=== PATIENT | female | born 1995 | race Caucasian/White ===

== ENCOUNTER 2016-07-12 10:12 | Emergency (ER) | payer OTHER ==
[2016-07-12 11:10] VITALS: BP 135/85
--- NOTE | 2016-07-12 12:30 | UC ---
Complaint Female HPI - HPI Summary HPI Summary: Dysuria, frequency, hematuria starting last night. feels like other UTIs she's had. Last UTI was 2.5 months ago. Has had increased freq of UTIs since she started the nuvaring. - History Of Current Complaint Chief Complaint: UCGU Stated Complaint: URINARY Time Seen by Provider: 07/12/16 12:18 Hx Obtained From: Patient Hx Last Menstrual Period: 5 weeks ago ?: No Onset/Duration: Gradual Onset, Lasting Hours Timing: Constant Severity Initially: Mild Severity Currently: Moderate Character: Burning Aggravating Factor(s): Urination - Allergies/Home Medications Allergies/Adverse Reactions: Allergies Allergy/AdvReac Type Severity Reaction Status Date / Time Codeine Allergy Vomiting Verified 07/12/16 11:10 Home Medications: Home Medications Nuva Ring 1 dose VAGINAL WEEKLY 07/12/16 [History Confirmed 07/12/16] PMH/Surg Hx/FS Hx/Imm Hx Previously Healthy: Yes Respiratory History Of: Denies: Asthma - Surgical History Surgical History: Yes Surgery Procedure, Year, and Place: Right knee - Family History Known Family History: Positive: Hypertension - Social History Lives: Alone Alcohol Use: None Substance Use Type: None Smoking Status (MU): Never Smoked Tobacco Review of Systems Constitutional: Negative Skin: Negative Eyes: Negative ENT: Negative Respiratory: Negative Cardiovascular: Negative Gastrointestinal: Negative Genitourinary: Dysuria, Hematuria, Frequency, Urgency Motor: Negative Neurovascular: Negative Musculoskeletal: Negative Neurological: Negative Psychological: Negative All Other Systems Reviewed And Are Negative: Yes Physical Exam Triage Information Reviewed: Yes Appearance: Well-Appearing, No Pain Distress, Well-Nourished Vital Signs: Initial Vital Signs Temp 97.1 F 07/12/16 11:08 Pulse 84 07/12/16 11:08 Resp 14 07/12/16 11:08 BP 135/85 07/12/16 11:08 Pulse Ox 99 07/12/16 11:08 Vital Signs Reviewed: Yes Eye Exam: Normal Eyes: Positive: Conjunctiva Clear ENT Exam: Normal ENT: Positive: Normal ENT inspection, Hearing grossly normal, Pharynx normal, TMs normal. Negative: Nasal congestion Dental Exam: Normal Neck exam: Normal Neck: Positive: Supple, Nontender, No Lymphadenopathy Cardiovascular Exam: Normal Cardiovascular: Positive: RRR, No Murmur Abdominal Exam: Normal Abdomen Description: Positive: Nontender, Soft. Negative: CVA Tenderness (R), CVA Tenderness (L) Musculoskeletal Exam: Normal Neurological Exam: Normal Psychological Exam: Normal Skin Exam: Normal Complaint Female Dx - Differential Dx/Diagnosis Provider Diagnoses: UTI Discharge - Discharge Plan Condition: Stable Disposition: HOME Prescriptions: Nitrofurantoin Monohyd Macro [Macrobid] 100 mg PO BID #10 cap Patient Education Materials: Urinary Tract Infection in Women (ED) Referrals: Roxie Munoz [Primary Care Provider] - If Needed
== END 2016-07-12 12:31 | disposition home or self-care (01) ==
LOC: UCCORT 10:12
DX: N39.0 Urinary tract infection, site not specified (principal); R09.81 Nasal congestion; Z87.440 Personal history of urinary (tract) infections
CPT/HCPCS: 81025; 87077; 87086; 87186; 99212; G0463

== ENCOUNTER 2019-04-02 17:50 | Emergency (ER) | payer BC ==
[2019-04-02 18:12] VITALS: BP 145/84
--- NOTE | 2019-04-02 18:32 | UC ---
Respiratory Complaint HPI - HPI Summary HPI Summary: Ms. Ohara started with sore throat and congestion about a week ago. It has progressed and she no longer has a sore throat but she is coughing a lot. The cough is mildly productive. She's not aware of any fevers. - History of Current Complaint Chief Complaint: UCRespiratory Stated Complaint: URI Time Seen by Provider: 04/02/19 18:17 Hx Obtained From: Patient Hx Last Menstrual Period: [id number] Onset/Duration: Gradual Onset Severity Initially: Moderate Severity Currently: Moderate Pain Intensity: 5 Character: Cough: Nonproductive Associated Signs And Symptoms: Positive: Nasal Congestion - Allergies/Home Medications Allergies/Adverse Reactions: Allergies Allergy/AdvReac Type Severity Reaction Status Date / Time codeine Allergy Vomiting Verified 04/02/19 18:14 Home Medications: Home Medications Acetaminophen TAB* [Tylenol TAB*] 975 mg PO Q6H PRN 04/02/19 [History Confirmed 04/02/19] Cetirizine* [ZyrTEC 10 MG TAB*] 10 mg PO DAILY 04/02/19 [History Confirmed 04/02] Ibuprofen TAB* [Motrin TAB* 600 MG] 600 mg PO Q6H PRN 04/02/19 [History Confirmed 04/02/19] PMH/Surg Hx/FS Hx/Imm Hx Previously Healthy: Yes - Surgical History Surgical History: Yes Surgery Procedure, Year, and Place: Right knee 11/18/18 - Family History Known Family History: Positive: Hypertension - Social History Alcohol Use: Occasionally Substance Use Type: None Smoking Status (MU): Never Smoked Tobacco Review of Systems All Other Systems Reviewed And Are Negative: Yes Physical Exam - Summary Physical Exam Summary: She is nontoxic in appearance with stable vital signs Vital Signs: Initial Vital Signs Temp 99.2 F 04/02/19 18:09 Pulse 84 04/02/19 18:09 Resp 16 04/02/19 18:09 BP 145/84 04/02/19 18:09 Pulse Ox 99 04/02/19 18:09 Respiratory Course/Dx - Course Course Of Treatment: She has a viral URI. On limited treat her symptomatically. She cannot tolerate codeine and I'm going to give her some guaifenesin DM as well as Tessalon. - Differential Dx/Diagnosis Provider Diagnosis: URI (upper respiratory infection) Discharge ED - Sign-Out/Discharge Documenting (check all that apply): Patient Departure All imaging exams completed and their final reports reviewed: No Studies - Discharge Plan Condition: Stable Disposition: HOME Patient Education Materials: Upper Respiratory Infection (ED) Referrals: Roxie Munoz [Primary Care Provider] - - Billing Disposition and Condition Condition: STABLE Disposition: Home
== END 2019-04-02 18:40 | disposition home or self-care (01) ==
LOC: UCEAST 17:50
DX: J06.9 Acute upper respiratory infection, unspecified (principal); Z88.5 Allergy status to narcotic agent
CPT/HCPCS: 99212; G0463